=== PATIENT | female | born 2000 | race African-American/Black ===

== ENCOUNTER 2019-06-11 01:47 | Inpatient (IN) ==
[2019-06-11] MEDS ORDERED: CARBOPROST TROMETHAMINE 250 MCG/ML AMP IM ONE (01:54)
[2019-06-11] MEDS ORDERED: miSOPROStoL 200 MCG TABLET ONE (01:54)
[2019-06-11] MEDS ORDERED: METHYLERGONOVINE 0.2 MG/1 ML AMP ONE (01:54)
[2019-06-11] MEDS ORDERED: MEPERIDINE 50 MG/1 ML VIAL IV PRN (01:56)
[2019-06-11] MEDS ORDERED: ONDANSETRON 4 MG/2 ML VIAL IV PRN ×2 (01:56→05:58)
[2019-06-11] MEDS ORDERED: BUTORPHANOL 2 MG/ML VIAL IV PRN (01:56)
[2019-06-11] MEDS ORDERED: LACTATED RINGERS 1,000 ML IV SCH (02:00)
[2019-06-11] MEDS ORDERED: OXYTOCIN/LR 20 UNIT/1,000 ML BAG IV ONE ×2 (02:18→05:58)
[2019-06-11 02:23] LABS: Basophils # 0.1 10*3/uL (0.0-0.2); Basophils % 0.3 % (0.0-0.8); Hematocrit 32.9 VOL% (35.7-47.0); Hemoglobin 10.7 GM/DL (12.0-16.0); Immature Granulocytes % 4.5 %; Immature Granulocytes Absolute 0.85 #; Lymphocytes # 1.2 10*3/uL (1.4-4.0); Lymphocytes % 6.1 % (21.3-54.2); Mean Corpuscular HGB Conc 32.5 GM/DL (32-36); Mean Corpuscular Volume 78.7 FL (87-102); Monocytes % 3.5 % (1.7-12.7); Neutrophils % 85.6 % (38.7-73.9); Platelet Count 250 T/CUMM (130-400); Red Blood Count 4.18 MC/CUMM (3.8-5.5); Red Cell Distribution Width 13.7 % (9.3-17.3); White Blood Count 18.8 T/CUMM (4-12)
[2019-06-11 02:39] LABS: Cord Arterial Blood HCO3 21.1 MMOL/L
[2019-06-11 02:50] LABS: Cord Venous Blood HCO3 22.1 MMOL/L; Cord Venous Blood PCO2 44.1 MMHG; Cord Venous Blood PO2 27.6
[2019-06-11 04:23] LABS: Band Neutrophils 2 % (0-10); Lymphocytes 7 % (20-55); Segmented Neutrophils 88 % (50-85); Total Cells Counted 100
[2019-06-11 04:24] LABS: Anisocytosis 1+; Ovalocytes Few; Platelet Estimate Normal
[2019-06-11] MEDS ORDERED: DIPH/TET/ACEL PERT BOOSTER VACCINE 0.5 ML VIAL IM ONE (05:58)
[2019-06-11] MEDS ORDERED: RHO(D) IMMUNE GLOBULIN 300 MCG SYRINGE IM ONE (05:58)
[2019-06-11] MEDS ORDERED: IBUPROFEN 800 MG TABLET PO PRN (05:58)
[2019-06-11] MEDS ORDERED: ACETAMINOPHEN 325 MG TABLET PO PRN (05:58)
[2019-06-11] MEDS ORDERED: LANOLIN 50% CREAM 0.3 OZ TUBE TOP PRN (05:58)
[2019-06-11] MEDS ORDERED: HYDROCORTISONE 2.5% RECTAL CREAM 30 GM TUBE TOP PRN (05:58)
[2019-06-11] MEDS ORDERED: BISACODYL 10 MG SUPP RECTAL PRN (05:58)
[2019-06-11] MEDS ORDERED: oxyCODONE/ACETAMINOPHEN 5-325 MG TABLET PO PRN (05:58)
[2019-06-11] MEDS ORDERED: LACTATED RINGERS 1,000 ML IV ONE (05:58)
[2019-06-11] MEDS ORDERED: BENZOCAINE 20%/MENTHOL 0.5% SPRAY 56 GM CAN TOP PRN (05:58)
[2019-06-11] MEDS ORDERED: WITCH HAZEL PADS 100/JAR TOP PRN (05:58)
[2019-06-11] MEDS ORDERED: MEASLES/MUMPS/RUBELLA VACCINE 0.5 ML VIAL SUBCUT ONE (05:58)
[2019-06-11] MEDS: DOCUSATE SODIUM 100 MG CAPSULE PO SCH ×2 (09:15→20:51)
[2019-06-11] MEDS: oxyCODONE/ACETAMINOPHEN 5-325 MG TABLET PO PRN (13:08)
[2019-06-12 06:40] LABS: Basophils # 0.1 10*3/uL (0.0-0.2); Basophils % 0.4 % (0.0-0.8); Eosinophils # 0.1 10*3/uL (0.0-0.87); Eosinophils % 0.6 % (0.00-10.9); Hematocrit 28.4 VOL% (35.7-47.0); Hemoglobin 9.4 GM/DL (12.0-16.0); Immature Granulocytes % 2.6 %; Immature Granulocytes Absolute 0.38 #; Lymphocytes # 2.9 10*3/uL (1.4-4.0); Lymphocytes % 20.2 % (21.3-54.2); Mean Corpuscular HGB Conc 33.1 GM/DL (32-36); Mean Corpuscular Volume 77.4 FL (87-102); Mean Platelet Volume 10.1 FL (9.6-12.0); Monocytes % 8.9 % (1.7-12.7); Neutrophils % 67.3 % (38.7-73.9); Platelet Count 240 T/CUMM (130-400); Red Blood Count 3.67 MC/CUMM (3.8-5.5); Red Cell Distribution Width 13.8 % (9.3-17.3); White Blood Count 14.5 T/CUMM (4-12)
[2019-06-12] MEDS: DOCUSATE SODIUM 100 MG CAPSULE PO SCH ×2 (09:32→21:00)
[2019-06-12] MEDS: FERROUS SULFATE 325 MG TABLET PO SCH (21:00)
[2019-06-12] MEDS: oxyCODONE/ACETAMINOPHEN 5-325 MG TABLET PO PRN (21:00)
[2019-06-13] MEDS ORDERED: ONDANSETRON 4 MG TABLET PO PRN (02:05)
[2019-06-13 07:48] VITALS: BP 101/60
[2019-06-13] MEDS: DOCUSATE SODIUM 100 MG CAPSULE PO SCH (08:27)
[2019-06-13] MEDS: FERROUS SULFATE 325 MG TABLET PO SCH (08:27)
== END 2019-06-13 10:50 | disposition home or self-care (01) | DRG 560 ==
LOC: N.LDOUT 01:47 → N.LD 01:49 → N.OB 11:24
PROVIDERS: ADMIT Obstetrics & Gynecology; ATTEND Obstetrics & Gynecology